=== PATIENT | female | born 1960 | race Caucasian/White ===

== ENCOUNTER → 2022-10-01 09:07 | Outpatient (CLI) | payer OTHER, SELFPAY ==
--- NOTE | ~2022-10-01 | MR_ITS ---
EXAMINATION: MR foot LT wo con DATE: 10/01/2022 09:44 INDICATION: Localized swelling, mass or lump at the left forefoot TECHNIQUE: Magnetic resonance imaging (MRI) of the left fore/mid foot was performed without intraveno us contrast. Sequences included sagittal T1-weighted FSE, sagittal fluid sensitive FSE STIR, coronal PD-weighted FS FSE, coronal T1-weighted FSE, axial PD-weighted FS FSE, and axial PD-weighted FSE. COMPARISON: Radiographs dated 09/18/2022 FINDINGS: In the third intermetatarsal space there is nonspecific feathery muscular edema throughout the dorsal interosseous muscle extending to the lateral neck of the third metatarsal. No discrete fluid signal intensity tear defect or discontinuity of the associated tendon. There is mild likely reactive edema in the overlying subcutaneous fat. No associated muscular atrophy with normal signal. Remaining muscu lature of the mid and forefoot. No discrete fluid collections or soft tissue masses identified. Bone alignment is normal with normal marrow signal throughout. No reactive marrow edema, fracture or patho logic marrow replacing process. Joint spaces appear normal with no erosions or joint effusions. The f lexor and extensor tendons of the foot appear normal as does the Lisfranc ligament complex and the co llateral ligament complex at the metatarsophalangeal and interphalangeal joints. IMPRESSION: 1. Nonspecific edema throughout the dorsal interosseous muscle at the third intermetatarsal space whi ch could be related to trauma/low-grade strain or other nonspecific myositis which would have a wide differential. Reviewed, dictated and finalized at location A. ERTY INSPECTOR IMPRESSION: 1. Nonspecific edema throughout the dorsal interosseous muscle at the third int ermetatarsal space which could be related to trauma/low-grade strain or other n onspecific myositis which would have a wide differential.
== END ==
PROVIDERS: PCP Family Medicine; Visit Provider Orthopaedic Surgery
DX: M22.42 Chondromalacia patellae, left knee (principal)
CPT/HCPCS: 73718

== ENCOUNTER 2022-10-31 00:59 | Day surgery (SDC) | payer OTHER, SELFPAY ==
[2022-10-21 09:43] VITALS: BMI 27.9
--- NOTE | 2022-10-21 09:59 | PC.NURSE ---
Report to the Outpatient Waiting Room, entrance under the green pavilion located off [facility], at time _0830_ on date _10/31/22_. Planned Procedure Time: _1030_. Time changes happen often and if your time is changed the preop area will call you the afternoon before. - You and your visitor will be asked to self-screen and do not enter if you have any COVID symptoms. - Only one visitor is requested with a max of two and NO children visitors are allowed at this time. - The patient visitor may be requested to leave or wait in car when not with patient due to distancing restrictions. - A mask is optional within the hospital at this time. Patients may have clear liquids (water, carbonated beverages, clear teas, apple juice) until 3 hours prior to surgery (0730 AM) with a maximum of 20 ounces. - No food from midnight until time of surgery - Infants may have breast milk until 4 hours before surgery, formula 6 hours prior to surgery. - Children will be allowed to drink immediately following surgery. If applicable, please bring a bottle or sippy cup to assist with drinking. Juice, water, soda, and popsicles are readily available. For infants on formula, please bring formula the day of surgery. Pacifiers are allowed. Take the following medications with a SIP of water the morning of surgery: _NASAL SPRAY_ DO NOT STOP ANY OF YOUR OTHER PRESCRIPTION MEDICATIONS PRIOR TO SURGERY ?EXCEPT THE FOLLOWING Medications to discontinue _CELECOXIB PER DR. HENDERSON'S INSTRUCTIONS__ Medications to discontinue per ANESTHESIA - MULTIVITAMIN 3 DAYS PRIOR TO SURGERY, Date to take last dose 10/27/22__ (PT STATES STOPPING FISH OIL 10/20/22) Please no make-up, nail welsh, hairspray, perfume, deodorant, or body powder the day of surgery. No jewelry (including any body piercings) or valuables the day of surgery, leave them at home. Please take a shower or bath the night before, or the morning of, surgery with an antibacterial soap. Wear comfortable, loose fitting clothing. Children are encouraged to wear pajamas. - Jewelry must be removed prior to entering the operating room. Rings and piercings that are not removed may be cut off. - The hospital will not accept responsibility for valuables. - Please leave all valuables, including medications, at home the day of surgery. If you are going home after surgery, a licensed winch driver must drive you home. - NO public transportation without another adult if you receive anesthesia. - We recommend that an adult stay with you for 24 hours following discharge. - We also recommend that you do not drive, make important decision, drink alcoholic beverages, or take any drugs that were not prescribed by your health care provider for at least 24 hours after your discharge time. For Pediatric surgeries, we recommend two adults accompany the child home. Follow any additional instructions given to you from your surgeon. If you or anyone in your household have experienced Covid symptoms in the past week, please notify your surgeon or the nurse liaison at the phone number below for possible testing. Telephone instructions given to _PATIENT__and asked if any additional questions and then verbalized understanding. Patient advised to call surgeon office or pre surgery nurse liaison [phone] if any additional questions.
--- NOTE | 2022-10-30 12:38 | PM.IMHP ---
H&P: HPI History of Present Illness Date/Time: 10/30/22 12:38 Chief Complaint: Left foot pain Narrative: 62-year-old woman with left foot neuroma. Confirmed with diagnostic injection. Continues to have pain despite multiple previous injections, physical therapy orthotics. MRI confirms neuroma. Presents for operative treatment. Review of Systems Constitutional: Constitutional: Denies fever(s) Eyes: Eyes: Denies blurry vision ENT: Reports Normal hearing present Cardiovascular: Cardiovascular: Denies chest pain and Denies dyspnea Respiratory: Respiratory: Denies dyspnea and Denies wheezing Gastrointestinal: Gastrointestinal: Denies abdominal pain Genitourinary: Genitourinary: Denies urinary urgency Musculoskeletal: Musculoskeletal: Reports as per HPI and Denies numbness Integumentary/Breasts: Skin/Breast: Denies changing lesions and Denies sores Neurologic: Reports Normal hearing present, Denies behavioral changes, Denies confusion, Denies numbness and Denies convulsions Psychiatric: Psychiatric: Denies behavioral changes, Denies confusion and Denies hallucinations Endocrine: Endocrine: Denies heat intolerance Hematologic/Lymphatic: Hematologic/Lymphatic: Denies easy bleeding Allergic/Immunologic: Allergic/Immunologic: Denies wheezing PMFSH Past Medical History Medical History Metatarsal stress fracture of left foot 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 Tarsal tunnel syndrome, left lower limb Tarsal tunnel syndrome, right lower limb Family History Family History Other Family history of malignant neoplasm Family history of mental disorder Social History Social History Smoking status: Never smoker Second hand tobacco smoke exposure: No Alcohol intake: current Drinks per week: 1 Substance use: never Substance use type: does not use Living arrangements: with family Spiritual care concerns: No Meds Home Medications and Allergies Home Medications Medication Instructions Recorded Confirmed Type azelastine 205.5 mcg (0.15 %) 2 spray intranasal BID 10/21/22 10/21/22 History nasal spray calcium carbonate 600 mg-vitamin 1 tablet PO DAILY 10/21/22 10/21/22 History D3 20 mcg (800 unit) chewable tablet (Caltrate 600 plus D) celecoxib 200 mg capsule 200 mg QAM 10/21/22 10/21/22 History loratadine 10 mg capsule 10 mg PO DAILY 10/21/22 10/21/22 History multivitamin 1 tablet PO DAILY 10/21/22 10/21/22 History omega 8-adc-npl-fish oil 1,200 mg 1 cap PO QA 10/21/22 10/21/22 History (144 mg-216 mg) capsule (Fish Oil) pantoprazole 40 mg tablet,delayed 40 mg PO QA 10/21/22 10/21/22 History release pravastatin 40 mg tablet 40 mg HS 10/21/22 10/21/22 History psyllium husk-calcium 1 gram-60 mg 2 cap PO HS 10/21/22 10/21/22 History capsule (Metamucil Plus Calcium) Allergies Allergy/AdvReac Type Severity Reaction Status Date / Time No Known Allergies Allergy Unknown Verified 10/21/22 09:33 Exam Const: General: No confusion Orientation/consciousness: No confusion HENMT: Head: normal to inspection, normocephalic and atraumatic Eyes: Conjunctivae: conjunctivae normal Sclera: sclerae normal Neck: Neck: supple and nontender Chest: Chest palpation & inspection: normal inspection of the chest Resp: Effort & Inspection: normal respiratory effort and no audible wheezes Cardio: Rate: regular rate Rhythm: regular rhythm : General: Yes deferred Skin: General skin exam: no rashes or lesions noted Neuro: General: No confusion Extrem: General: capillary refill normal Right upper extremity: normal to inspection Left upper extremity: normal to inspection Right lower extremity: normal to inspection and hip/thigh Details: normal to inspection Left lower extremity: hip/thigh Details: no
--- NOTE | 2022-10-30 13:51 | P.PNAN_ITS ---
Anes - Initial Pre Proc Eval Procedure: Operation Date: 10/31/22 10:30 Proposed Procedures p Excision of Neuroma Left Foot - Humphrey Salazar MD Date/Time: 10/30/22 13:51 Surgeon: Humphrey Salazar MD Pre Op Diagnosis: left 3rd intermetatarsal neuroma Patient Data Age: 62 Gender: F Height: 1.66 m Weight: 77.27 kg Allergies Allergy/AdvReac Type Severity Reaction Status Date / Time No Known Allergies Allergy Unknown Verified 10/31/22 09:45 Home Medications Medication Instructions Recorded Confirmed Type azelastine 205.5 mcg (0.15 %) 2 spray intranasal BID 10/21/22 10/21/22 History nasal spray calcium carbonate 600 mg-vitamin 1 tablet PO DAILY 10/21/22 10/21/22 History D3 20 mcg (800 unit) chewable tablet (Caltrate 600 plus D) celecoxib 200 mg capsule 200 mg QAM 10/21/22 10/21/22 History loratadine 10 mg capsule 10 mg PO DAILY 10/21/22 10/21/22 History multivitamin 1 tablet PO DAILY 10/21/22 10/21/22 History omega 0-rcb-hcr-fish oil 1,200 mg 1 cap PO QAM 10/21/22 10/21/22 History (144 mg-216 mg) capsule (Fish Oil) pantoprazole 40 mg tablet,delayed 40 mg PO QAM 10/21/22 10/21/22 History release pravastatin 40 mg tablet 40 mg HS 10/21/22 10/21/22 History psyllium husk-calcium 1 gram-60 mg 2 cap PO HS 10/21/22 10/21/22 History capsule (Metamucil Plus Calcium) Patient hx anesthesia problems: none Family hx anesthesia problems: none Results Review: All pre-operative results and documents have been reviewed as part of the pre- operative evaluation. 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 Tarsal tunnel syndrome, left lower limb Tarsal tunnel syndrome, right lower limb Family History Family History Other Family history of malignant neoplasm Family history of mental disorder Social History Social History Smoking status: Never smoker Second hand tobacco smoke exposure: No Alcohol intake: current Drinks per week: 1 Substance use: never Substance use type: does not use Living arrangements: with family Spiritual care concerns: No Anes - Eval Final PreProcedure Day of Procedure 10/30/22 13:51 Patient weight: normal Heart: regular rate and rhythm Lungs: clear to auscultation Airway: Mallampati scale class II Neurological: alert and oriented Last oral intake: >/= 8 hours ASA classification: II Emergent: no Anesthetic plan: proceed Anesthesia type and monitoring: general LMA and standard monitoring Results Review: All pre-operative results and documents have been reviewed as part of the pre- operative evaluation. Informed Consent: The patient's anesthetic plan and its attendant risks and benefits were discussed with the patient/family/POA. Questions were solicited and answers provided to the satisfaction of the patient/family/POA.
[2022-10-31] VITALS (9 sets, daily range): BP systolic 107–155; BP diastolic 71–98; PULSE 48–74; RESP 12–16; TEMP 36.9–37; O2SAT 97–100
--- NOTE | 2022-10-31 07:14 | WPDHPUPDATE1 ---
History and Physical Update Update Date/Time: 10/31/22 07:14 History and Physical has been reviewed, including an updated exam of the patient. There are NO changes in the patient's condition. Risks, benefits, and alternatives have been discussed and questions answered. Patient agrees to proceed with procedure.
[2022-10-31] MEDS: LACTATED RINGERS 1,000 ML 30 ML IV CONT (09:30)
[2022-10-31] MEDS: KETOROLAC 15 MG/ML VIAL (*BKC) IV PUSH (09:30)
[2022-10-31] MEDS: ACETAMINOPHEN 500 MG TABLET 1000 MG PO (09:30)
[2022-10-31] MEDS: ceFAZolin 2 GM/D5W 50 ML 2 GM/50 ML BAG IVPB (10:32)
[2022-10-31] MEDS: BUPivacaine HCL 0.5% PF 30 ML VIAL INFILTRATE (10:51)
--- NOTE | 2022-10-31 11:26 | P.OP_ITS ---
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 Diagnostic injection confirmed neuroma. Patient presents for removal. Findings Large intermetatarsal neuroma 3rd space. Description of Procedure Patient identified in the preoperative holding. Informed consent given. Operative extremity marked. Patient received intravenous antibiotics. Patient brought to the operating room where underwent general anesthetic by anesthesia team. Positioned supine on operating room table. Time-out performed confirming the patient, site of the surgery and the plan. Left foot prepped draped usual sterile surgical fashion using ChloraPrep skin solution. Local anesthetic with 0.5% Marcaine plain. Foot and ankle exsanguinated and calf tourniquet inflated to 225 mmHg. Dorsal longitudinal incision made over the 3rd intermetatarsal space with 15 blade knife. Hemostasis controlled electrocautery. Intermetata rsal ligament released in line with the skin incision. This allowed exposure of the plantar nerve. There was a very large neuroma noted distal to the ligament. This was freed up proximally retractors were placed in the muscle and the nerve was transected sharply. This was traced out distally in branch to the 3rd and 4th toe identified and released and transected. This was then passed off as s pecimen. no other neural elements remained. Wound thoroughly irrigated with solution. Subcutaneous tissue repaired with 2-0 Vicryl interrupted suture. Skin repaired with 4-0 nylon running suture. Tourniquet released for total time of 22 minutes. Sterile dressing applied. The patient was then woken from anesthesia, extubated and taken to the recovery room in stable condition. All sponge, needle, instrument counts were correct at the end of the case. Estimated Blood Loss -2.0 Tourniquet Time 22 Drains No Packing No Pathology Yes ( Intermetatarsal neuroma left foot) Complications None Condition Stable Disposition PACU [facility] Billing Surgery - Charge Forward: Surgery Billing ([id number])
[2022-10-31] MEDS: fentaNYL CITRATE INJ (*CRX) 100 MCG/2 ML VIAL 25 MCG IV PUSH ×2 (11:53→11:56)
== END 2022-10-31 13:32 | disposition home or self-care (01) ==
PROVIDERS: PCP Family Medicine; Visit Provider Orthopaedic Surgery
PROC: (CPT 28080; principal; 2022-10-31 10:30)
DX: G57.82 Other specified mononeuropathies of left lower limb (principal)
CPT/HCPCS: 28080; 88304; A9270; J0690; J1100; J1885; J2250; J2370; J2405; J2704; J3010; J7120